=== PATIENT | male | born 1955 | race Caucasian/White ===

== ENCOUNTER → 2016-10-01 | Outpatient (REF) ==
--- NOTE | 2016-10-01 12:40 | REP ---
LUMBAR SPINE, THREE VIEWS: HISTORY: Degenerative disc disease. The patient is status post L4-S1 posterior spinal fusion and L4-5 laminectomy. Metal rods and pedicle screws are present. There is no acute fracture or subluxation. The intervertebral discs are decreased in height consistent with disc degeneration. Osteophytes are present on L3-5. IMPRESSION: 1. The patient is status post L4-S1 posterior spinal fusion and L4-5 laminectomy. There is anatomic alignment of the lumbar spine. 2. Degenerative change as described above. Signed by Nicola Victor MD 10/01/2016 12:46 P
--- NOTE | 2016-10-01 12:47 | REP ---
CERVICAL SPINE, SEVEN VIEWS: HISTORY: Degenerative disc disease. The cervical spine is visualized from C1-C7 in the lateral radiographs. The patient is status post C6-7 anterior spinal fusion. A fixation plate and bone graft material are present. There is no acute fracture or subluxation. The C4-5 and C5-6 intervertebral discs are decreased in height consistent with disc degeneration. Osteophytes are present on C4 and 5. There is narrowing of the left C3, 5, and 6 neural foramina. The right neural foramina are not well seen. IMPRESSION: 1. The patient is status post C6-7 anterior spinal fusion. There is anatomic alignment of the cervical spine. 2. Degenerative change as described above. Signed by Nicola Victor MD 10/01/2016 12:50 P
--- NOTE | 2016-10-01 14:04 | REP ---
RIGHT HIP, TWO VIEWS: HISTORY: Degenerative joint disease. There is no acute fracture or dislocation. There is minimal narrowing of the joint space with associated osteophyte formation. IMPRESSION: Degenerative change as described above. Signed by Nicola Victor MD 10/01/2016 02:06 P
== END ==
LOC: M SMT 11:14
PROVIDERS: ATTEND Internal Medicine
DX: Z00.00 Encounter for general adult medical examination without abnormal findings (principal)

== ENCOUNTER 2017-05-08 09:48 | Outpatient (CLI) | payer OTHER ==
[~2017-05-08] VITALS: Ht 190.5 cm; Wt 103.0 kg
[~2017-05-08 09:48] MED LIST: FISH1000 PO; MULT1TAB11 PO; OMEP40CA2 PO; PROPOFOL 200 MG/20 ML VIAL As Ordered ONE
[2017-05-08] MEDS ORDERED: NS 1,000 ML IV ONE (10:00)
--- NOTE | 2017-05-08 10:52 | ROOR ---
Patient Name: Red Cosme Procedure Date: 05/08/2017 10:28 AM Date of : 1955 Age: 61 Room: [facility] Gender: Male Note Status: Finalized Procedure: Colonoscopy Indications: Screening for colorectal malignant neoplasm Providers: Chiki Wolf Jr, MD Referring MD: JOSE L DOMINGO MD Requesting Provider: Medicines: Propofol per Anesthesia Complications: No immediate complications. Procedure: Pre-Anesthesia Assessment: - Prior to the procedure, a History and Physical was performed, and patient medications and allergies were reviewed. The patient is competent. The risks and benefits of the procedure and the sedation options and risks were discussed with the patient. All questions were answered and informed consent was obtained. Patient identification and proposed procedure were verified by the physician and the nurse in the pre-procedure area and in the procedure room. Mental Status Examination: alert and oriented. Airway Examination: normal oropharyngeal airway and neck mobility. Respiratory Examination: clear to auscultation. CV Examination: normal. ASA Grade Assessment: II - A patient with mild systemic disease. After reviewing the risks and benefits, the patient was deemed in satisfactory condition to undergo the procedure. The anesthesia plan was to use moderate sedation / analgesia (conscious sedation). Immediately prior to administration of medications, the patient was re-assessed for adequacy to receive sedatives. The heart rate, respiratory rate, oxygen saturations, blood pressure, adequacy of pulmonary ventilation, and response to care were monitored throughout the procedure. The physical status of the patient was re-assessed after the procedure. The Colonoscope was introduced through the anus and advanced to the cecum, identified by appendiceal orifice and ileocecal valve. The colonoscopy was performed without difficulty. The patient tolerated the procedure well. The quality of the bowel preparation was adequate and good. Findings: The rectum, recto-sigmoid colon, sigmoid colon, descending colon, transverse colon, ascending colon, cecum, appendiceal orifice and ileocecal valve appeared normal. The perianal and digital rectal examinations were normal. Pertinent negatives include normal sphincter tone, no palpable rectal lesions and no anal lesion or abnormality was detected. Impression: - The rectum, recto-sigmoid colon, sigmoid colon, descending colon, transverse colon, ascending colon, cecum, appendiceal orifice and ileocecal valve are normal. - No specimens collected. Recommendation: - Repeat colonoscopy in 10 years for screening purposes. Chiki Wolf MD Chiki Wolf Jr, MD 05/08/2017 10:52:28 AM This report has been signed electronically. Number of Addenda: 0 Note Initiated On: 05/08/2017 10:28 AM Estimated Blood Loss: Estimated blood loss: none.
[2017-05-08 11:15] VITALS: BP 116/81
== END 2017-05-08 11:17 | disposition home or self-care (01) ==
LOC: M OPP 09:48
PROVIDERS: ATTEND Surgery
DX: Z12.11 Encounter for screening for malignant neoplasm of colon (principal); R12 Heartburn; K21.9 Gastro-esophageal reflux disease without esophagitis; M54.9 Dorsalgia, unspecified; G47.30 Sleep apnea, unspecified; E78.00 Pure hypercholesterolemia, unspecified; N40.1 Benign prostatic hyperplasia with lower urinary tract symptoms; Z98.1 Arthrodesis status; Z79.899 Other long term (current) drug therapy; Z80.8 Family history of malignant neoplasm of other organs or systems; Z87.891 Personal history of nicotine dependence

== ENCOUNTER → 2020-11-21 | Outpatient (REF) | payer OTHER ==
[~2020-11-21] MED LIST changes: -OMEP40CA2 PO; +OMEP40CA97 PO; -PROPOFOL 200 MG/20 ML VIAL As Ordered ONE
== END ==
LOC: M SMT 13:36
PROVIDERS: ATTEND Nurse Practitioner Family
DX: R97.20 Elevated prostate specific antigen [PSA] (principal); N39.0 Urinary tract infection, site not specified
CPT/HCPCS: 51798; 87086; G0463

== ENCOUNTER → 2021-01-23 | Outpatient (CLI) | payer OTHER ==
--- NOTE | 2021-01-23 12:59 | REPPI ---
INDICATION: ELEVATED PSA. COMPARISON: None. TECHNIQUE: Transrectal prostate ultrasound performed, with ultrasound guidance provided for Dr. Redmond who performed ultrasound-guided biopsy. FINDINGS: Prostate measures 3.8 x 3.6 x 5.3 cm, total volume 30.6 mL. Echotexture is heterogeneous with scattered small cysts and calcifications. No peripheral zone mass is seen. Seminal vesicles are symmetrical. IMPRESSION: Prostate ultrasound as above, ultrasound guidance was provided for Dr. Redmond who performed ultrasound-guided biopsy of the prostate. <Electronically signed by Fabian Maher > 01/23/21 [id number]
== END ==
LOC: M SMT PRO 09:09
PROVIDERS: ATTEND Urology
DX: R97.20 Elevated prostate specific antigen [PSA] (principal)
CPT/HCPCS: 52000; 55700; 76872; 76942; G0416

== ENCOUNTER → 2021-03-02 | Outpatient (CLI) | payer OTHER ==
[~2021-03-02] MED LIST changes: +ATOR1TAB21 PO; +CIPR-249 PO; +OMEG10002 PO; +OMEP40CA4 PO; -OMEP40CA97 PO
== END ==
LOC: M LABSMTC 10:36
PROVIDERS: ATTEND Anesthesiology
DX: Z01.812 Encounter for preprocedural laboratory examination (principal)

== ENCOUNTER → 2021-03-05 | Outpatient (CLI) | payer OTHER ==
--- NOTE | 2021-03-05 14:39 | REP ---
INDICATION: PRE OP TESTING. COMPARISON: No comparison chest x-ray. TECHNIQUE: Two views.. FINDINGS: The lungs are well inflated and free of infiltrate. The pleural angles are sharp. The heart size is normal. Pulmonary vasculature is not increased. No significant bony abnormality is seen. Patient is status post lower cervical spine discectomy and fusion plating. IMPRESSION: No active cardiopulmonary disease. Status post lower cervical spine fusion.. <Electronically signed by Mark Walker > 03/05/21 [id number]
== END ==
LOC: M WUC 13:40
PROVIDERS: ATTEND Urology
DX: Z01.818 Encounter for other preprocedural examination (principal); N40.1 Benign prostatic hyperplasia with lower urinary tract symptoms

== ENCOUNTER 2021-03-07 13:27 | Day surgery (SDC) | payer OTHER ==
[~2021-03-07] VITALS: Ht 190.5 cm; Wt 109.0 kg
[~2021-03-07 13:27] MED LIST changes: -CIPR-249 PO; +LR 1,000 ML IV ONE; -OMEG10002 PO; +ceFAZolin SOD 2 GM in IV 1 EA IV ONE
[2021-03-07] MEDS ORDERED: OMEG10002 PO (13:42)
[2021-03-07] MEDS ORDERED: MIDAZOLAM INJ 2MG/2ML VIAL (J2250 PER 1MG) As Ordered ONE (14:52)
[2021-03-07] MEDS ORDERED: fentaNYL 100 MCG/2 ML INJECTION (J3010) As Ordered ONE ×3 (14:52→15:54)
[2021-03-07] MEDS ORDERED: propofoL 200 MG/20 ML VIAL As Ordered ONE ×3 (14:52→15:21)
[2021-03-07] MEDS ORDERED: ONDANSETRON 4MG/2ML VIAL As Ordered ONE (14:52)
[2021-03-07] MEDS ORDERED: LIDOCAINE 2% 100MG/5ML SDV (FOR ANES.) As Ordered ONE (14:52)
[2021-03-07 14:54] LABS: INR 1.07; PROTHROMBIN TIME 14.1 SECONDS (12.5-14.3)
[2021-03-07 14:55] LABS: PARTIAL THROMBOPLASTIN TIME 30.3 SECONDS (24.2-38.5)
[2021-03-07] MEDS ORDERED: ACETAMINOPHEN 1000MG 100ML IV BTL (OFIRMEV) (J0131 PER 10MG) As Ordered ONE (15:45)
[2021-03-07] MEDS ORDERED: FUROSEMIDE 100MG/10ML VIAL (J1940) As Ordered ONE (16:56)
[2021-03-07] MEDS ORDERED: CIPR-249 PO (17:35)
[2021-03-07] MEDS ORDERED: oxyCODONE 5MG TAB PO PRN (17:55)
[2021-03-07] MEDS ORDERED: ONDANSETRON 4MG/2ML VIAL IV PRN (17:55)
[2021-03-07] MEDS ORDERED: fentaNYL 100 MCG/2 ML INJECTION (J3010) IV PRN (17:55)
[2021-03-07] MEDS ORDERED: LR 1,000 ML IV SCH (17:55)
[2021-03-07] MEDS ORDERED: ACETAMINOPHEN TAB 650MG DOSE (2X325MG) PO PRN (17:55)
[2021-03-07 19:00] VITALS: BP 178/90
--- NOTE | 2021-03-08 08:51 | RO ---
OPERATIVE NOTE DATE OF OPERATION: 03/07/2021 PREOPERATIVE DIAGNOSIS: Benign prostatic hyperplasia. POSTOPERATIVE DIAGNOSIS: Benign prostatic hyperplasia. PROCEDURE: Cystoscopy, button transurethral electrovaporization of the prostate. SURGEON: Jarocho Redmond MD PHOTO TECHNOLOGIST: None. ANESTHESIA: General. OPERATIVE INDICATIONS: This is a 65-year-old male with benign prostatic hyperplasia with lower urinary tract symptoms. He is brought to the operating room today for surgical treatment as he has been refractory to medical therapy. DESCRIPTION OF PROCEDURE: The patient was brought to the operating room and general anesthesia was induced. Prophylactic antibiotics were infused. He was placed in dorsal lithotomy position and prepped and draped in usual sterile fashion. Resectoscope was inserted in the urethral meatus and advanced into the bladder using visual obturator. Once inside the bladder I made note of the location of the ureteral orifices as well as verumontanum. At this point I began vaporizing hyperplastic tissue circumferentially at the bladder neck and then on both lobes of disease. I kept doing this until there was a clear channel established. Throughout the procedure I made sure not to vaporize close to the ureteral orifices or distal to the verumontanum. Once there was a clear channel established hemostasis was obtained using coagulation current. Once satisfied with hemostasis the resectoscope was removed and 18-Kinyarwanda Coude catheter was inserted into the bladder. The balloon was filled with 15 mL of sterile water and the catheter was connected to gravity drainage. This marked the conclusion of the procedure. The patient was taken out of the dorsal lithotomy position, awakened from anesthesia and transferred to the recovery room in stable condition. ESTIMATED BLOOD LOSS: 25 mL. COMPLICATIONS: None. SPECIMEN: None. PLAN: The patient will follow up in urology clinic in approximately one week for catheter removal and voiding trial.
== END 2021-03-07 19:06 | disposition home or self-care (01) ==
LOC: M SDC 13:27
PROVIDERS: ATTEND Urology
DX: N40.1 Benign prostatic hyperplasia with lower urinary tract symptoms (principal); G47.30 Sleep apnea, unspecified; K21.9 Gastro-esophageal reflux disease without esophagitis; Z79.899 Other long term (current) drug therapy
CPT/HCPCS: 36415; 52601; 85610; 85730; J0131; J0690; J1940; J2250; J2405; J3010

== ENCOUNTER → 2021-04-13 | Outpatient (REF) | payer OTHER ==
[~2021-04-13] MED LIST changes: +CIPR-249 PO; -LR 1,000 ML IV ONE; +OMEG10002 PO; -ceFAZolin SOD 2 GM in IV 1 EA IV ONE
[2021-04-13 14:11] LABS: APPEARANCE, URINE HAZY (CLEAR); BACTERIA, URINE AUTO 1+ (NEGATIVE); BILIRUBIN, URINE AUTO NEGATIVE (NEGATIVE); BLOOD, URINE BLOOD 3+ (NEGATIVE); COLOR, URINE YELLOW (YELLOW); GLUCOSE, URINE (UA) AUTO NEGATIVE (NEGATIVE); KETONE, URINE AUTO NEGATIVE (NEGATIVE); LEUKOCYTE ESTERASE, URINE AUTO 3+ (NEGATIVE); MUCUS, URINE SMALL (NEGATIVE); NITRITE, URINE AUTO NEGATIVE (NEGATIVE); PROTEIN, URINE AUTO NEGATIVE (NEGATIVE); RBC, URINE AUTO 5 /HPF (0-3); SPECIFIC GRAVITY URINE AUTO 1.002 (1.002-1.035); SQUAMOUS EPITHELIAL CELL UR AU 0 /HPF (0-6); UROBILINOGEN, URINE AUTO 0.2 mg/dL (0.0-2.0); WBC, URINE AUTO 45 /HPF (0-3)
== END ==
LOC: M SMT 12:53
PROVIDERS: ATTEND Nurse Practitioner Family
DX: N40.1 Benign prostatic hyperplasia with lower urinary tract symptoms (principal)

== ENCOUNTER 2022-01-14 08:45 | Emergency (ER) | payer OTHER ==
[~2022-01-14] VITALS: Ht 190.5 cm; Wt 100.0 kg
[2022-01-14] MEDS ORDERED: KETOROLAC 30 MG/ML 1ML VIAL IM ONE (09:35)
[2022-01-14] MEDS ORDERED: CYCLOBENZAPRINE 5MG TABLET PO ONE (09:35)
[2022-01-14] MEDS ORDERED: LIDOCAINE 5% (LIDODERM) PATCH TD ONE (09:35)
[2022-01-14] MEDS ORDERED: CYCL5TAB PO (11:04)
[2022-01-14] MEDS ORDERED: PRED20TA PO (11:04)
[2022-01-14 11:15] VITALS: BP 164/96
[2022-01-14] MEDS ORDERED: **NOTE PATIENT COMMENT** MISC XX ONE (21:00)
[2022-01-14] MEDS ORDERED: **NOTE PATIENT COMMENT** MISC XX SCH (21:00)
== END 2022-01-14 11:20 | disposition home or self-care (01) ==
LOC: M ED 08:45
DX: M54.50 Low back pain, unspecified (principal); F10.10 Alcohol abuse, uncomplicated; I10 Essential (primary) hypertension; K21.9 Gastro-esophageal reflux disease without esophagitis; Z79.899 Other long term (current) drug therapy
CPT/HCPCS: 72131; 96372; 99283; J1885

== ENCOUNTER → 2022-03-25 | Outpatient (CLI) | payer OTHER ==
[~2022-03-25] MED LIST changes: +CYCL5TAB PO; +PRED20TA PO
== END ==
LOC: M PLALAB 15:25
PROVIDERS: ATTEND Urology
DX: R97.20 Elevated prostate specific antigen [PSA] (principal)

== ENCOUNTER → 2023-04-09 | Outpatient (CLI) | payer MEDICARE, OTHER | LOC: M PLAIMG 07:13 | PROVIDERS: ATTEND Nurse Practitioner Family | DX: M54.12 Radiculopathy, cervical region (principal) ==

== ENCOUNTER → 2023-04-09 | Outpatient (CLI) | payer MEDICARE, OTHER ==
[2023-04-11 23:09] LABS: PSA TOTAL 0.9 ng/mL (0.0-4.0)
== END ==
LOC: M PLALAB 11:10
PROVIDERS: ATTEND Urology
DX: N40.0 Benign prostatic hyperplasia without lower urinary tract symptoms (principal)

== ENCOUNTER → 2023-10-03 | Outpatient (CLI) | payer OTHER | LOC: M PAIN 08:00 | PROVIDERS: ATTEND Nurse Practitioner Family | DX: M96.1 Postlaminectomy syndrome, not elsewhere classified (principal); M79.10 Myalgia, unspecified site; G89.29 Other chronic pain; K21.9 Gastro-esophageal reflux disease without esophagitis; G47.30 Sleep apnea, unspecified; Z79.899 Other long term (current) drug therapy; Z87.891 Personal history of nicotine dependence; Z88.8 Allergy status to other drugs, medicaments and biological substances ==

== ENCOUNTER → 2023-10-10 | Outpatient (CLI) | payer MEDICARE, OTHER | LOC: M PLAIMG 10:23 | PROVIDERS: ATTEND Physician Assistant Medical | DX: Z98.1 Arthrodesis status (principal); M54.12 Radiculopathy, cervical region; M50.33 Other cervical disc degeneration, cervicothoracic region ==

== ENCOUNTER → 2023-10-21 | Outpatient (CLI) | payer MEDICARE, OTHER | LOC: M PLAIMG 15:30 → M PLARAD 15:30 | PROVIDERS: ATTEND Physician Assistant Medical | DX: M50.30 Other cervical disc degeneration, unspecified cervical region (principal); Z98.1 Arthrodesis status ==

== ENCOUNTER → 2024-03-29 | Outpatient (CLI) | payer MEDICARE, OTHER | LOC: M PLALAB 14:05 | PROVIDERS: ATTEND Urology | DX: N40.0 Benign prostatic hyperplasia without lower urinary tract symptoms (principal); Z12.5 Encounter for screening for malignant neoplasm of prostate | CPT/HCPCS: 36415; G0103 ==

== ENCOUNTER → 2025-05-11 | Outpatient (CLI) | payer MEDICARE, OTHER ==
[~2025-05-11] MED LIST changes: -CYCL5TAB PO; +CYCL5TAB4 PO
== END ==
LOC: M PLALAB 13:28
PROVIDERS: ATTEND Urology
DX: N40.0 Benign prostatic hyperplasia without lower urinary tract symptoms (principal); Z87.898 Personal history of other specified conditions; Z12.5 Encounter for screening for malignant neoplasm of prostate
CPT/HCPCS: 36415; G0103